=== PATIENT | male | born 1970 | race African-American/Black ===

== ENCOUNTER 2017-10-22 08:28 | Emergency (ER) | payer MEDICAID ==
[~2017-10-22] VITALS: Ht 182.9 cm; Wt 110.0 kg
[2017-10-22 09:29] VITALS: BP 125/86
== END 2017-10-22 09:57 | disposition home or self-care (01) ==
LOC: ER 09:41
DX: B00.9 Herpesviral infection, unspecified (principal); F12.90 Cannabis use, unspecified, uncomplicated
CPT/HCPCS: 99283